=== PATIENT | male | born 1965 | race Caucasian/White ===

== ENCOUNTER 2024-07-06 11:04 | Emergency (ER) | payer MEDICARE, SELFPAY ==
--- NOTE | ~2024-07-06 | XR_ITS ---
EXAMINATION: XR KNEE, LEFT CLINICAL INFORMATION: Pain COMPARISON: None available. TECHNIQUE: Four views of the left knee. FINDINGS: No acute visible fracture or dislocation. Large periarticular osteophytes along the medial knee joint along the suggested region of the medial collateral ligament potentially representing a Andrew-Stieda lesion versus sequela of remote trauma. Chronic appearing fracture deformity along the medial distal femoral diaphysis/metadiaphysis. Multicompartment arthritic changes. Enthesopathy along the quadriceps tendon insertion site and patellar tendon insertion site. Joint space alignment otherwise maintained. No large knee joint effusion. Soft tissues are unremarkable. XR/XR knee LT 3V IMPRESSION: 1. No acute visible fracture or dislocation. 2. Large periarticular osteophytes along the medial knee joint along the suggested region of the medial collateral ligament potentially representing a Andrew-Stieda lesion versus sequela of remote trauma. 3. Chronic appearing fracture deformity along the medial distal femoral diaphysis/metadiaphysis. 4. Multicompartment arthritic changes. Electronically signed by: Roverto Calloway MD 07/06/2024 12:59 PM EDT
--- NOTE | ~2024-07-06 | XR_ITS ---
EXAMINATION: XR HIP, LEFT CLINICAL INFORMATION: Pain COMPARISON: None available. TECHNIQUE: Three views of the left hip. FINDINGS: Right femoral intramedullary nail with oblique screws through the greater and lesser trochanter partially visualized grossly intact. Large amount of heterotopic ossification along the cranial margin of the right greater trochanter. Plate and screw fixation of the medial left iliac wing. Screws noted along the left femoral intertrochanteric region with robust heterotopic ossification bridging the iliac wing and left greater trochanter. Osteopenia. No acute visible fracture or dislocation. Chronic appearing fracture deformity involving the right inferior pubic ramus. Degenerative arthropathy of the lumbosacral spine. Fecal loading of the colon. Soft tissues are unremarkable. XR/XR hip LT w PEL1V IMPRESSION: 1. Right femoral intramedullary nail with oblique screws through the greater and lesser trochanter partially visualized grossly intact. Large amount of heterotopic ossification along the cranial margin of the right greater trochanter. 2. Plate and screw fixation of the medial left iliac wing. 3. Screws noted along the left femoral intertrochanteric region with robust heterotopic ossification bridging the iliac wing and left greater trochanter. 4. Osteopenia. 5. No acute visible fracture or dislocation. 6. Chronic appearing fracture deformity involving the right inferior pubic ramus. Electronically signed by: Roverto Calloway MD 07/06/2024 12:56 PM EDT
--- NOTE | ~2024-07-06 | XR_ITS ---
EXAMINATION: XR ELBOW, LEFT CLINICAL INFORMATION: Pain COMPARISON: None available. TECHNIQUE: Four views of the left elbow. FINDINGS: No acute visible fracture or dislocation. Postsurgical changes of the elbow joint suggesting remote arthrodesis with near obliteration of the ulnohumeral joint space. Degenerative arthropathy of the radial humeral joint space. Curvilinear/oval radiodensity in the region of the biceps muscle incompletely imaged may reflect pole of trauma. Joint space alignment otherwise maintained. No large elbow joint effusion. Soft tissues are unremarkable. XR/XR elbow LT min 3V IMPRESSION: 1. No acute visible fracture or dislocation. 2. Postsurgical changes of the elbow joint suggesting remote arthrodesis with near obliteration of the ulnohumeral joint space. 3. Degenerative arthropathy of the radial humeral joint space. 4. Curvilinear/oval radiodensity in the region of the biceps muscle incompletely imaged may reflect sequela of remote trauma. Electronically signed by: Roverto Calloway MD 07/06/2024 12:54 PM EDT
--- NOTE | ~2024-07-06 | CT_ITS ---
EXAM: CT HEAD WITHOUT CONTRAST CT CERVICAL SPINE INDICATION: fall, pain TECHNIQUE: A noncontrast CT scan was performed from the skull base to the vertex. A noncontrast CT scan of the cervical spine was performed from the base of the skull through T1 at 2.5 mm and 0.625 mm collimation. Coronal and sagittal reformats were obtained at the acquisition workstation. This CT examination was performed using dose optimization techniques as appropriate, variously including the following: * Automated exposure control * Adjustment of mA and/or kV according to patient size (this includes techniques or standardized protocols for targeted exams where dose is matched to indication/reason for exam; i.e. extremities or head) * Use of iterative reconstruction technique Dose length product is 354 mGy-cm. COMPARISON: None FINDINGS: Head: Encephalomalacia and gliosis in the left frontoparietal region, with exvacuodilatation of the left lateral ventricle. Findings are consistent with a remote infarct. [place] to white matter differentiation is maintained without evidence of an acute edematous territorial infarct. There is no intracranial hemorrhage, subarachnoid bleeding or extra-axial collection. There are scattered hypodensities throughout the periventricular and deep white matter likely related with chronic small vessel ischemic disease. There is proportional prominence of the ventricles with the cerebral sulci spaces in keeping with generalized cerebral volume loss. There is no hydrocephalus, mass effect,, midline shift. No acute calvarial fracture. Right mastoid air cells partial effusion. The paranasal sinuses and left mastoid air cells are clear. Cervical Spine: The atlantooccipital and atlantoaxial articulation is maintained.. Reversal of the normal cervical lordosis. Mild anterolisthesis of C4 on C5, probably degenerative, with facet degeneration at this level. Otherwise, there is anatomic alignment of the vertebral bodies and posterior elements. No evidence of acute fracture. Vertebral body heights are maintained. Multilevel moderate cervical spondylosis, including moderate C5-6, severe C6-7 and C7-T1 disc degeneration. Multilevel facet degeneration. Central bony canal is relatively maintained.. No prevertebral soft tissue swelling. No suspicious thyroid findings. No suspicious finding the lung apices. CT/CT cervical spine wo IV con IMPRESSION: * Left frontoparietal region encephalomalacia and gliosis consistent with remote infarction. * No CT evidence of acute intracranial hemorrhage or edematous large vessel territorial infarction. * No CT evidence of cervical spine fracture. * Moderate-severe cervical spine spondylosis . Electronically signed by: Michael Sorenson MD 07/06/2024 01:26 PM EDT
[2024-07-06 11:12] VITALS: BP 111/55; BP 133/76; PULSE 66; PULSE 68; RESP 16; TEMP 36.4; O2SAT 96; O2SAT 98; BMI 25.8
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
[2024-07-06 13:53] VITALS: BP 131/81; PULSE 75; RESP 16; TEMP 36.4; O2SAT 97
== END 2024-07-06 13:54 | disposition home or self-care (01) ==
PROVIDERS: Emergency Provider Emergency Medicine; PCP Internal Medicine
DX: S79.912A Unspecified injury of left hip, initial encounter (principal); S59.902A Unspecified injury of left elbow, initial encounter; R51.9 Headache, unspecified; M54.2 Cervicalgia; M25.522 Pain in left elbow; M25.562 Pain in left knee; M25.552 Pain in left hip; Y99.8 Other external cause status; W19.XXXA Unspecified fall, initial encounter; Y93.89 Activity, other specified; Y92.89 Other specified places as the place of occurrence of the external cause
CPT/HCPCS: 70450; 72125; 73080; 73502; 73562; 99283; 99284